=== PATIENT | male | born 1940 | race American Indian/Alaskan Native ===

== ENCOUNTER 2016-10-15 09:54 | Outpatient (CLI) | payer MEDICARE ==
--- NOTE | 2016-10-15 15:01 | Nuclear Medicine Report ---
NUCLEAR MEDICINE MUGA GATED CARDIAC History: Ischemic cardiomyopathy Findings: Heart rate measures 48 beats per minute. No focal wall motion abnormality is detected on the planar images. The cardiac ejection fraction measures 49%. Impression: The cardiac ejection fraction measures 49%
== END 2016-10-15 09:55 | disposition home or self-care (01) ==
LOC: NM 09:54
PROVIDERS: ATTEND Internal Medicine Cardiovascular Disease
DX: I25.5 Ischemic cardiomyopathy (principal)
CPT/HCPCS: 78472; A9560